=== PATIENT | female | born 1975 | race Hispanic/Latino ===

== ENCOUNTER → 2016-10-14 | Outpatient (REF) | payer BC ==
[2016-10-14 11:33] LABS: ALBUMIN 3.9 g/dL (3.4-5.0); ANION GAP 15.4 MEQ/L (3-15); CALCULATED IONIZED CALCIUM 3.8 mg/dL (3.8-4.6); TOTAL PROTEIN 7.7 g/dL (6.4-8.5)
== END ==
LOC: LAB 11:07
PROVIDERS: ATTEND Family Medicine
DX: Z00.00 Encounter for general adult medical examination without abnormal findings (principal); Z13.220 Encounter for screening for lipoid disorders
CPT/HCPCS: 80053; 80061

== ENCOUNTER → 2016-10-23 | Outpatient (CLI) | payer BC | LOC: RAD 10:39 | PROVIDERS: ATTEND Family Medicine | DX: Z12.31 Encounter for screening mammogram for malignant neoplasm of breast (principal) ==